=== PATIENT | male | born 1965 | race Two or more races ===

== ENCOUNTER 2021-02-05 11:01 | Inpatient (IN) | payer OTHER ==
[2021-02-05 12:25] VITALS: BMI 31.5
[2021-02-05] MEDS ORDERED: MAGNESIUM HYDROX 2400MG/30ML ORAL SUSPENSION 30 ML CUP PO PRN (12:25)
[2021-02-05] MEDS ORDERED: NICOTINE POLACRILEX 4 MG GUM BUC PRN (12:25)
[2021-02-05] MEDS ORDERED: NICOTINE 10 MG CARTRIDGE (INHALER) IH PRN (12:25)
[2021-02-05] MEDS ORDERED: MAGNESIUM CITRATE 300 ML BOTTLE PO PRN (12:25)
[2021-02-05] MEDS ORDERED: MAG HYDROX/AL HYDROX/SIMETH 30 ML UNIT-DOSE CUP PO PRN (12:25)
[2021-02-05] MEDS ORDERED: MENTHOL/PHENOL 1 EACH UD MM PRN (12:25)
[2021-02-05] MEDS ORDERED: ACETAMINOPHEN 325 MG TABLET (FP) PO PRN ×2 (12:25)
[2021-02-05] MEDS ORDERED: IBUPROFEN 400 MG TABLET (FP) PO PRN (12:25)
[2021-02-05] MEDS ORDERED: BISMUTH SUBSALICYLATE 524 MG/30 ML PO PRN (12:25)
[2021-02-05] MEDS ORDERED: ONDANSETRON *ODT* 4 MG TABLET SL PRN (12:25)
[2021-02-05] MEDS ORDERED: diazePAM 5 MG TABLET PO PRN (12:25)
[2021-02-05] MEDS ORDERED: diazePAM 5 MG TABLET PO ONE (13:00)
[2021-02-05] MEDS ORDERED: diazePAM 5 MG TABLET ONE (13:22)
[2021-02-05] MEDS: PRENATAL VITAMINS W/ FOLIC ACID TABLET (FP) PO SCH (14:07)
[2021-02-05] MEDS: hydrOXYzine PAMOATE 25 MG CAPSULE (FP) PO SCH ×3 (14:08→22:10)
[2021-02-05] MEDS: METHOCARBAMOL 500 MG TABLET PO PRN (17:51)
[2021-02-05] MEDS: diazePAM 5 MG TABLET PO SCH ×2 (17:51→22:11)
[2021-02-05] MEDS: THIAMINE HCL 100 MG TABLET (FP) PO SCH (22:10)
[2021-02-05] MEDS: MELATONIN 5 MG TABLETS PO SCH (22:10)
[2021-02-06] MEDS: hydrOXYzine PAMOATE 25 MG CAPSULE (FP) PO SCH ×5 (06:37→22:39)
[2021-02-06] MEDS: diazePAM 5 MG TABLET PO SCH ×2 (06:37→10:16)
[2021-02-06] MEDS: PRENATAL VITAMINS W/ FOLIC ACID TABLET (FP) PO SCH (10:16)
[2021-02-06] MEDS: METHOCARBAMOL 500 MG TABLET PO PRN ×2 (10:16→22:40)
[2021-02-06] MEDS: amLODIPine BESYLATE 5 MG TABLET (FP) PO SCH (14:07)
[2021-02-06 16:44] LABS: EPI CELLS 13 /uL (0-25.1); HYALINE CASTS 4 /uL (0-3.1); PH,URINE 6.5 (5.0-8.0); URINE APPEARANCE CLEAR; URINE BACTERIA 10 /uL (0-1359); URINE BILIRUBIN NEGATIVE (NEGATIVE); URINE COLOR YELLOW; URINE GLUCOSE (UA) NEGATIVE (NEGATIVE); URINE KETONE TRACE (NEGATIVE); URINE LEUK ESTERASE 1+ (NEGATIVE); URINE NITRITE NEGATIVE (NEGATIVE); URINE PROTEIN NEGATIVE (NEGATIVE); URINE RBC 5 /uL (0-23.9); URINE UROBILINOGEN 0.2 mg/dL (0.2-1.0); URINE WBC 105 /uL (0-25.8)
[2021-02-06] MEDS: THIAMINE HCL 100 MG TABLET (FP) PO SCH (22:39)
[2021-02-06] MEDS: MELATONIN 5 MG TABLETS PO SCH (22:40)
[2021-02-07] MEDS: hydrOXYzine PAMOATE 25 MG CAPSULE (FP) PO SCH ×5 (05:34→22:30)
[2021-02-07] MEDS ORDERED: LORazepam 2 MG TABLET PO ONE ×2 (05:54→06:30)
[2021-02-07] MEDS ORDERED: diazePAM 5 MG TABLET PO SCH (06:00)
[2021-02-07] MEDS: PRENATAL VITAMINS W/ FOLIC ACID TABLET (FP) PO SCH (10:17)
[2021-02-07] MEDS: amLODIPine BESYLATE 5 MG TABLET (FP) PO SCH (10:18)
[2021-02-07] MEDS: LORazepam 0.5 MG TABLET PO PRN ×2 (10:20→17:33)
[2021-02-07 11:39] LABS: HEMOGLOBIN 15.8 GM/dL (11.7-16.9); MCH 29.7 pg (25.7-33.7); MEAN CELL VOLUME 84.9 fl (80-96); MEAN PLT VOLUME 8.5 fl (7.5-11.1); PLATELET COUNT 113 10^3/uL (134-434); RDW 14.4 % (11.9-15.9); WHITE BLOOD COUNT 5.8 K/mm3 (4.0-10.0)
[2021-02-07 11:43] LABS: ALBUMIN 3.3 g/dl (3.4-5.0); BLOOD UREA NITROGEN 16.6 mg/dL (7-18); CALCIUM 8.9 mg/dL (8.5-10.1)
[2021-02-07 11:46] LABS: CREATININE 0.9 mg/dL (0.55-1.3)
[2021-02-07 11:48] LABS: BILIRUBIN,TOTAL 0.5 mg/dL (0.2-1)
[2021-02-07] MEDS: LORazepam 0.5 MG TABLET PO SCH ×2 (14:13→22:29)
[2021-02-07] MEDS: MELATONIN 5 MG TABLETS PO SCH (22:30)
[2021-02-07] MEDS: THIAMINE HCL 100 MG TABLET (FP) PO SCH (22:30)
[2021-02-08] MEDS ORDERED: LORazepam 0.5 MG TABLET PO PRN (00:01)
[2021-02-08] MEDS: LORazepam 0.5 MG TABLET PO SCH ×2 (05:40→17:31)
[2021-02-08] MEDS: hydrOXYzine PAMOATE 25 MG CAPSULE (FP) PO SCH ×5 (05:40→22:32)
[2021-02-08] MEDS ORDERED: diazePAM 5 MG TABLET PO SCH (06:00)
[2021-02-08] MEDS: METHOCARBAMOL 500 MG TABLET PO PRN (10:30)
[2021-02-08] MEDS: PRENATAL VITAMINS W/ FOLIC ACID TABLET (FP) PO SCH (10:30)
[2021-02-08] MEDS: amLODIPine BESYLATE 5 MG TABLET (FP) PO SCH (10:30)
[2021-02-08 13:13] VITALS: TEMP 97.8
[2021-02-08] MEDS: MELATONIN 5 MG TABLETS PO SCH (22:31)
[2021-02-08] MEDS: THIAMINE HCL 100 MG TABLET (FP) PO SCH (22:32)
[2021-02-09] MEDS: hydrOXYzine PAMOATE 25 MG CAPSULE (FP) PO SCH ×2 (05:55→10:38)
[2021-02-09] MEDS ORDERED: LORazepam 0.5 MG TABLET PO ONE (06:00)
[2021-02-09] MEDS ORDERED: diazePAM 5 MG TABLET PO ONE (06:00)
[2021-02-09 09:31] VITALS: BP 127/93; PULSE 88
[2021-02-09] MEDS: amLODIPine BESYLATE 5 MG TABLET (FP) PO SCH (10:37)
[2021-02-09] MEDS: PRENATAL VITAMINS W/ FOLIC ACID TABLET (FP) PO SCH (10:38)
== END 2021-02-09 11:08 | disposition home or self-care (01) | DRG 897 ==
LOC: YASAS 11:01 → Y6N 13:29
PROVIDERS: ADMIT Allergy & Immunology; ATTEND Allergy & Immunology
PROC: HZ2ZZZZ Detoxification Services for Substance Abuse Treatment (ICD-10-PCS; principal; 2021-02-05)
DX: F10.230 Alcohol dependence with withdrawal, uncomplicated (principal); F10.24 Alcohol dependence with alcohol-induced mood disorder; F41.9 Anxiety disorder, unspecified; F32.A Depression, unspecified; I10 Essential (primary) hypertension; J30.2 Other seasonal allergic rhinitis; Z56.0 Unemployment, unspecified
CPT/HCPCS: 36415; 80053; 81003; 85027; 86780; 93005; 93010; C9803; U0003; U0005

== ENCOUNTER 2021-10-31 16:52 | Inpatient (IN) | payer OTHER ==
[2021-10-31 18:50] VITALS: BMI 30.9
[2021-10-31] MEDS ORDERED: LORazepam 1 MG TABLET PO PRN (19:50)
[2021-10-31] MEDS ORDERED: LORazepam 1 MG TABLET ONE (20:08)
[2021-10-31] MEDS ORDERED: ONDANSETRON *ODT* 4 MG TABLET SL PRN (20:28)
[2021-10-31] MEDS ORDERED: P-EPHED 60MG/TRIPROLIDI 2.5MG TABLET PO PRN (20:28)
[2021-10-31] MEDS ORDERED: MAGNESIUM CITRATE 300 ML BOTTLE PO PRN (20:28)
[2021-10-31] MEDS ORDERED: BISMUTH SUBSALICYLATE 524 MG/30 ML PO PRN (20:28)
[2021-10-31] MEDS ORDERED: IBUPROFEN 600 MG TABLET (FP) PO PRN (20:28)
[2021-10-31] MEDS ORDERED: ACETAMINOPHEN 325 MG TABLET (FP) PO PRN ×2 (20:28)
[2021-10-31] MEDS ORDERED: IBUPROFEN 400 MG TABLET (FP) PO PRN (20:28)
[2021-10-31] MEDS ORDERED: guaiFENesin 200 MG/10 ML 10 ML UNIT-DOSE CUPS PO PRN (20:28)
[2021-10-31] MEDS ORDERED: DICYCLOMINE HCL 10 MG CAPSULE PO PRN (20:28)
[2021-10-31] MEDS ORDERED: METHOCARBAMOL 500 MG TABLET PO PRN (20:28)
[2021-10-31] MEDS ORDERED: NICOTINE POLACRILEX 2 MG GUM BUC PRN (20:28)
[2021-10-31] MEDS ORDERED: MAG HYDROX/AL HYDROX/SIMETH 30 ML UNIT-DOSE CUP PO PRN (20:28)
[2021-10-31] MEDS ORDERED: MAGNESIUM HYDROX 2400MG/30ML ORAL SUSPENSION 30 ML CUP PO PRN (20:28)
[2021-10-31] MEDS ORDERED: LOPERAMIDE HCL 2 MG CAPSULE PO PRN (20:28)
[2021-10-31] MEDS ORDERED: BENZOCAINE/MENTHOL (CHLORASEPTIC ) LOZENGE MM PRN (20:28)
[2021-10-31] MEDS: THIAMINE HCL 100 MG TABLET (FP) PO SCH (23:45)
[2021-10-31] MEDS: LORazepam 2 MG TABLET PO SCH (23:45)
[2021-10-31] MEDS: MELATONIN 5 MG TABLETS PO SCH (23:45)
[2021-11-01] MEDS: LORazepam 2 MG TABLET PO SCH (05:27)
[2021-11-01] MEDS ORDERED: chlordiazePOXIDE HCL 25 MG CAPSULE PO PRN (09:40)
[2021-11-01] MEDS: NICOTINE 21 MG/24 HOURS TOPICAL PATCH TD SCH (10:13)
[2021-11-01] MEDS: chlordiazePOXIDE HCL 25 MG CAPSULE PO SCH ×3 (10:13→22:20)
[2021-11-01] MEDS: amLODIPine BESYLATE 5 MG TABLET (FP) PO SCH (10:13)
[2021-11-01] MEDS: PRENATAL VITAMINS W/ FOLIC ACID TABLET (FP) PO SCH (10:13)
[2021-11-01 10:47] LABS: HEMATOCRIT 45.9 % (35.4-49); HEMOGLOBIN 15.5 GM/dL (11.7-16.9); MCH 28.6 pg (25.7-33.7); MCHC 33.7 g/dl (32.0-35.9); MEAN CELL VOLUME 84.9 fl (80-96); MEAN PLT VOLUME 8.4 fl (7.5-11.1); PLATELET COUNT 135 10^3/uL (134-434); RBC 5.41 M/mm3 (4.00-5.60); RDW 15.9 % (11.9-15.9)
[2021-11-01 11:45] LABS: ALBUMIN 3.6 g/dl (3.4-5.0); BLOOD UREA NITROGEN 13.6 mg/dL (7-18); CALCIUM 8.9 mg/dL (8.5-10.1)
[2021-11-01 11:48] LABS: CREATININE 0.8 mg/dL (0.55-1.3)
[2021-11-01 11:50] LABS: TOT PROT 7.4 g/dl (6.4-8.2)
[2021-11-01] MEDS: THIAMINE HCL 100 MG TABLET (FP) PO SCH (22:19)
[2021-11-01] MEDS: MELATONIN 5 MG TABLETS PO SCH (22:23)
[2021-11-02] MEDS ORDERED: LORazepam 1 MG TABLET PO SCH (05:00)
[2021-11-02] MEDS: chlordiazePOXIDE HCL 25 MG CAPSULE PO SCH ×4 (05:16→22:35)
[2021-11-02] MEDS: amLODIPine BESYLATE 5 MG TABLET (FP) PO SCH (10:17)
[2021-11-02] MEDS: PRENATAL VITAMINS W/ FOLIC ACID TABLET (FP) PO SCH (10:17)
[2021-11-02] MEDS: NICOTINE 21 MG/24 HOURS TOPICAL PATCH TD SCH (10:18)
[2021-11-02] MEDS: MELATONIN 5 MG TABLETS PO SCH (22:36)
[2021-11-02] MEDS: THIAMINE HCL 100 MG TABLET (FP) PO SCH (22:36)
[2021-11-03] MEDS ORDERED: LORazepam 0.5 MG TABLET PO PRN
[2021-11-03] MEDS ORDERED: LORazepam 0.5 MG TABLET PO SCH (05:00)
[2021-11-03] MEDS: chlordiazePOXIDE HCL 25 MG CAPSULE PO SCH ×4 (05:37→22:16)
[2021-11-03] MEDS: NICOTINE 21 MG/24 HOURS TOPICAL PATCH TD SCH (10:31)
[2021-11-03] MEDS: PRENATAL VITAMINS W/ FOLIC ACID TABLET (FP) PO SCH (10:31)
[2021-11-03] MEDS: amLODIPine BESYLATE 5 MG TABLET (FP) PO SCH (10:31)
[2021-11-03 21:02] VITALS: RESP 18
[2021-11-03] MEDS: THIAMINE HCL 100 MG TABLET (FP) PO SCH (22:17)
[2021-11-03] MEDS: MELATONIN 5 MG TABLETS PO SCH (22:17)
[2021-11-04] MEDS ORDERED: chlordiazePOXIDE HCL 10 MG CAPSULE PO PRN
[2021-11-04] MEDS ORDERED: LORazepam 0.5 MG TABLET PO ONE (05:00)
[2021-11-04] MEDS: chlordiazePOXIDE HCL 10 MG CAPSULE PO SCH ×2 (05:19→10:39)
[2021-11-04 09:22] VITALS: BP 149/93; PULSE 81; TEMP 97.3
[2021-11-04] MEDS: amLODIPine BESYLATE 5 MG TABLET (FP) PO SCH (10:38)
[2021-11-04] MEDS: PRENATAL VITAMINS W/ FOLIC ACID TABLET (FP) PO SCH (10:38)
[2021-11-04] MEDS: NICOTINE 21 MG/24 HOURS TOPICAL PATCH TD SCH (10:38)
[2021-11-05] MEDS ORDERED: chlordiazePOXIDE HCL 10 MG CAPSULE PO SCH (05:00)
[2021-11-06] MEDS ORDERED: chlordiazePOXIDE HCL 10 MG CAPSULE PO ONE (05:00)
== END 2021-11-04 12:30 | disposition home or self-care (01) | DRG 897 ==
LOC: YASAS 16:52 → Y6N 20:17
PROVIDERS: ADMIT Allergy & Immunology; ATTEND Surgery
PROC: HZ2ZZZZ Detoxification Services for Substance Abuse Treatment (ICD-10-PCS; principal; 2021-10-31)
DX: F10.230 Alcohol dependence with withdrawal, uncomplicated (principal); F10.280 Alcohol dependence with alcohol-induced anxiety disorder; F17.210 Nicotine dependence, cigarettes, uncomplicated; F41.9 Anxiety disorder, unspecified; F19.24 Other psychoactive substance dependence with psychoactive substance-induced mood disorder; I10 Essential (primary) hypertension; R00.0 Tachycardia, unspecified; Z28.310 Unvaccinated for COVID-19; Z92.29 Personal history of other drug therapy; Z56.0 Unemployment, unspecified; Z62.810 Personal history of physical and sexual abuse in childhood
CPT/HCPCS: 36415; 80053; 85027; 86780; 93005; 93010; C9803-CS; U0003; U0005